=== PATIENT | male | born 1985 | race Caucasian/White ===

== ENCOUNTER 2017-09-29 21:18 | Emergency (ER) | payer BC ==
[~2017-09-29] VITALS: Ht 188 cm; Wt 142.0 kg
[~2017-09-29 21:18] MED LIST: TOPAMAX25 MG PO
[2017-09-29 22:09] LABS: ADD MIUA? NO; BILIRUBIN NEGATIVE; BLOOD NEGATIVE; COLOR YELLOW ((YELLOW)); GLUCOSE (STRIP) NEGATIVE; KETONES NEGATIVE; LEUKOCYTES NEGATIVE; NITRITE NEGATIVE; PROTEIN (STRIP) NEGATIVE; SPECIFIC GRAVITY 1.019 (1.000-1.030); UCUL ADDED? NO; UROBILINOGEN 0.2 MG/DL (0.2-1.0)
[2017-09-29 22:36] LABS: HEMATOCRIT 44.2 % (38.0-50.0); MCH 31.6 PG (29.0-34.0); MCHC 34.8 G/DL (30.0-36.0); MCV 90.8 FL (86-99); RBC DIS.WIDTH-CV 13.2 % (11.8-14.6); RBC DIS.WIDTH-SD 43.8 % (39-53); RED BLOOD COUNT 4.87 M/uL (4.00-5.50); WHITE BLOOD COUNT 12.3 K/uL (4.1-10.2)
[2017-09-29 22:52] LABS: CHLORIDE 106 mEq/L (99-109); POTASSIUM 3.8 mEq/L (3.7-5.4); SODIUM 139 mEq/L (136-147)
[2017-09-29 22:54] LABS: GLUCOSE 108 mg/dL (70-99)
[2017-09-29 22:55] LABS: ANION GAP 10 MEQ/L (2-14)
[2017-09-29 22:56] LABS: TOTAL BILIRUBIN 0.4 mg/dL (0.0-1.0)
[2017-09-29 22:57] LABS: ALKALINE PHOSPHATASE 86 IU/L (3-129)
[2017-09-29 22:58] LABS: GFR ESTIMATE (CALCULATED) > 59 mL/min/ (58.99-99999)
[2017-09-29 22:59] LABS: UREA NITROGEN (BUN) 12 mg/dL (9-23)
[2017-09-29 23:18] LABS: MEAN PLAT.VOLUME 11.8 uM^3 (9.0-12.4); PLAT.SUFFICIENCY ADEQUATE; PLATELET COUNT 198 K/uL (156-360)
[2017-09-30 00:14] VITALS: BP 133/77
== END 2017-09-30 00:16 | disposition home or self-care (01) ==
LOC: EME 21:18 → EDSEX 21:18 → EME 09-30 00:16
DX: R10.31 Right lower quadrant pain (principal); Z96.641 Presence of right artificial hip joint; F17.200 Nicotine dependence, unspecified, uncomplicated
CPT/HCPCS: 73502; 80053; 81003; 85027; 99281; 99284

== ENCOUNTER 2018-03-18 08:09 | Emergency (ER) | payer BC ==
[~2018-03-18] VITALS: Ht 188 cm; Wt 148.8 kg
[2018-03-18 08:42] LABS: HEMATOCRIT 47.4 % (38.0-50.0); HEMOGLOBIN 16.9 G/DL (12.5-16.6); MCH 31.6 PG (29.0-34.0); MCHC 35.7 G/DL (30.0-36.0); MCV 88.8 FL (86-99); RBC DIS.WIDTH-SD 42.2 % (39-53); RED BLOOD COUNT 5.34 M/uL (4.00-5.50); WHITE BLOOD COUNT 9.1 K/uL (4.1-10.2)
[2018-03-18 08:50] LABS: CHLORIDE 109 mEq/L (99-109); POTASSIUM 3.9 mEq/L (3.7-5.4)
[2018-03-18 08:51] LABS: SODIUM 139 mEq/L (136-147)
[2018-03-18 08:52] LABS: GLUCOSE 111 mg/dL (70-99)
[2018-03-18 08:56] LABS: CREATININE 0.9 mg/dL (0.6-1.3); GFR ESTIMATE (CALCULATED) > 59 mL/min/ (58.99-99999)
[2018-03-18 08:57] LABS: UREA NITROGEN (BUN) 10 mg/dL (9-23)
[2018-03-18 09:04] LABS: TROP-I INTERPRETATION NEGATIVE; TROPONIN-I < 0.01 ng/mL (0.0-0.30)
[2018-03-18 09:26] LABS: THYROTROPIN (TSH) 1.7 MIU/L (0.4-5.5)
[2018-03-18 10:06] LABS: PLAT.SUFFICIENCY ADEQUATE; PLATELET COUNT 221 K/uL (156-360)
[2018-03-18 10:40] VITALS: BP 114/75
== END 2018-03-18 10:30 | disposition home or self-care (01) ==
LOC: EME 08:09
PROVIDERS: Nurse Practitioner Family
PROC: 5A2204Z Restoration of Cardiac Rhythm, Single (ICD-10-PCS; principal; 2018-03-18)
DX: I48.91 Unspecified atrial fibrillation (principal); E86.0 Dehydration; F17.200 Nicotine dependence, unspecified, uncomplicated; G43.909 Migraine, unspecified, not intractable, without status migrainosus; Z96.641 Presence of right artificial hip joint; Z88.8 Allergy status to other drugs, medicaments and biological substances
CPT/HCPCS: 80048; 84443; 84484; 85027; 93005; 99281; 99285; J3475; J7030